=== PATIENT | male | born 2000 | race Caucasian/White ===

== ENCOUNTER 2021-03-17 14:00 | Emergency (ER) | payer OTHER, SELFPAY ==
[2021-03-17 14:11] VITALS: BP 133/86; PULSE 85; RESP 12; TEMP 36.9; O2SAT 98
--- NOTE | 2021-03-17 14:37 | ED.GENADULT ---
HPI - General Adult General Chief complaint: Abdominal Pain Stated complaint: Abdominal Pain Time Seen by Provider: 03/17/21 14:25 Source: patient, family and RN notes reviewed Mode of arrival: ambulatory Limitations: no limitations History of Present Illness HPI narrative: Alex is a 21-year-old male patient who ambulated into the [facility]. Patient states he has had right right sided abdominal pain for the last 5 days. Patient states he has not had any vomiting. Patient states he may have had a fever and he thinks he had chills on Tuesday afternoon. Patient states he has had cramping and tightness to the right abdomen. Patient denies any lifting or heavy exercise. Patient states has had a decreased appetite since Tuesday patient has been taking Pepto-Bismol and Tylenol. Patient has also been using a heating pad. Patient states the symptoms come and go. Patient states he takes Prilosec daily for acid reflux and he did not take for 3 days. MD complaint: right abdominal pain Related Data Home Medications Medication Instructions Recorded Confirmed omeprazole 03/17/21 Allergies Allergy/AdvReac Type Severity Reaction Status Date / Time amoxicillin [From Augmentin] Allergy Unknown Verified 03/17/21 14:13 clavulanic acid Allergy Unknown Verified 03/17/21 14:13 [From Augmentin] Review of Systems Review of Systems: CONSTITUTIONAL: Denies body aches, fever, chills, or sweats. EYES: Denies visual changes, redness, or discharge. ENT: Denies rhinorrhea, congestion, sore throat, or otalgia. CARDIOVASCULAR: Denies chest pain, palpitations, or edema. RESPIRATORY: Denies cough or dyspnea. GASTROINTESTINAL: +abdominal pain+ nausea, denies vomiting, or diarrhea. GENITOURINARY: Denies dysuria or hematuria. SKIN: Denies rash, itching, or wounds. MUSCULOSKELETAL: Denies back pain, joint pain, or myalgia. NEUROLOGIC: Denies headache, numbness, tingling, or weakness. PSYCH: Denies depression or anxiety. All systems reviewed & are unremarkable except as noted in HPI and below PMFSH Comments At time of signature, I have reviewed and agree with nursing past medical, surgical, social and family history unless otherwise noted. Please see nursing chart for further information. There is no relevant family history pertinent to the presenting complaint Exam Narrative: GENERAL: Well-appearing, well-nourished, and in no acute distress. HEAD: Normocephalic, atraumatic. EYES: EOMI. No redness or drainage. Conjunctivae normal. ENT: Mucous membranes pink and moist. Nares clear. No rhinorrhea. NECK: Normal AROM. Supple. No lymphadenopathy. CHEST: No respiratory distress. Clear to auscultation. HEART: Regular rate and rhythm. No murmur appreciated. Normal peripheral pulses. ABDOMEN: Soft, nontender, nondistended, normal active bowel sounds; no rebound tenderness noted to abdomen, no pain with mild or deep palpation elicited. MUSCULOSKELETAL: No bony tenderness. EXTREMITIES: Normal range of motion. No edema. SKIN: Warm, dry, no rash. Capillary refill normal. Normal skin turgor. NEURO: No focal deficits. Alert and oriented x3. Gait steady. PSYCH: Normal affect. No signs of depression or anxiety. Course Vital Signs Vital signs: Vital Signs Temperature 36.9 C 03/17/21 14:11 Pulse Rate 85 03/17/21 14:11 Respiratory Rate 12 03/17/21 14:11 Blood Pressure 133/86 03/17/21 14:11 Pulse Oximetry 98 03/17/21 14:11 Temperature 36.9 C 03/17/21 14:11 Pulse Rate 85 03/17/21 14:11 Respiratory Rate 12 03/17/21 14:11 Blood Pressure 133/86 03/17/21 14:11 Pulse Oximetry 98 03/17/21 14:11 Reviewed. Pt has been instructed to follow up with his PCP regarding his elevated blood pressure today. Medical Decision Making MDM Narrative Medical decision making narrative: Patient will be treated for gastroenteritis. Patient has no rebound tenderness. Patient has no abdominal pain with light or deep palpati
== END 2021-03-17 14:48 | disposition home or self-care (01) ==
PROVIDERS: Emergency Provider Nurse Practitioner Family
DX: K52.9 Noninfective gastroenteritis and colitis, unspecified (principal)
CPT/HCPCS: 99213; G0463

== ENCOUNTER 2021-03-24 19:41 | Emergency (ER) | payer OTHER, SELFPAY ==
--- NOTE | ~2021-03-24 | CT_ITS ---
EXAMINATION: CT abdomen pelvis w con DATE: 03/25/2021 03:12 INDICATION: Right lower quadrant abdominal pain TECHNIQUE: Computed tomography (CT) of the abdomen and pelvis was performed with 100 cc Omnipaque 350 intravenous contrast. The dose-length product was 504.37 mGy-cm. Automated exposure control and iter ative reconstruction technique were employed. COMPARISON: None. FINDINGS: Lung bases are unremarkable. No significant pleural or pericardial effusion. Heart size nor mal. There is a 2 cm right renal cyst. There are smaller low-density lesions in the right kidney, mos t likely cysts, although too small to characterize. No significant vascular abnormality. No lymphaden opathy. The liver, spleen, pancreas, adrenal glands and left kidney are unremarkable. Gallbladder is present. No acute osseous abnormality. There are mildly enlarged ileocolic lymph nodes, likely reactive. IMPRESSION: 1. Mildly enlarged ileocolic lymph nodes. Consider mesenteric adenitis in the appropriate clinical se tting. Reviewed, dictated and finalized at location B. [employer] IMPRESSION: 1. Mildly enlarged ileocolic lymph nodes. Consider mesenteric adenitis in the a ppropriate clinical setting.
[2021-03-24 19:46] VITALS: BP 126/83; PULSE 65; RESP 17; TEMP 36.4; O2SAT 99
[2021-03-24 23:09] VITALS: BP 127/76; PULSE 49; O2SAT 100
[2021-03-25 01:09] VITALS: BP 133/82; PULSE 58; RESP 16; O2SAT 100
[2021-03-25 01:53] LABS: Basophils Absolute Auto 0.1 K/mm3 (0.0-0.1); Eosinophils Absolute Auto 0.2 K/mm3 (0-0.3); Eosinophils Percent Auto 3.4 % (0-4.4); Hemoglobin 13.6 g/dL (14.0-18.0); Immature Granulocyte Absolute 0.01 K/mm3 (0.00-0.031); Immature Granulocyte Percent A 0.2 % (0-0.5); Lymphocytes Absolute Auto 2.87 K/mm3 (0.9-3.2); Lymphocytes Percent Auto 54.7 % (18.3-44.2); Mean Corpuscular HGB Conc 34.9 g/dl (32-36); Mean Corpuscular Hemoglobin 31.6 pg (26-34); Mean Corpuscular Volume 90.5 fl (80-100); Mean Platelet Volume 11.2 fl (7.4-10.4); Monocytes Absolute Auto 0.5 K/mm3 (0.1-0.6); Neutrophils Absolute Auto 1.7 K/mm3 (1.3-6.7); Neutrophils Percent Auto 31.7 % (45.5-73.1); Platelet Count Result 216 k/mm3 (150-375); Red Blood Count 4.31 M/mm3 (4.6-6.20); White Blood Count 5.3 K/mm3 (4.5-10.0)
[2021-03-25 02:04] LABS: Alanine Aminotransferase 17 U/L (4-50); Albumin Level 4.7 g/dL (3.5-5.1); Alkaline Phosphatase 63 U/L (38-126); Anion Gap 9 mmol/L (8-16); Aspartate Amino Transferase 20 U/L (17-59); Bilirubin,Total 0.6 mg/dL (0.2-1.3); Blood Urea Nitrogen 18 mg/dL (9-20); Calcium 9.6 mg/dL (8.4-10.2); Carbon Dioxide 30 mmol/L (22-30); Chloride 102 mmol/L (98-107); Estimated CRCL calculation 105 ml/min; Estimated Glomerular Filt Rate > 60; Glucose 98 mg/dL (65-110); Lipase 77 U/L (23-300); Potassium 3.7 mmol/L (3.4-5.0); Sodium 141 mmol/L (137-145)
[2021-03-25] MEDS: ONDANSETRON INJ 4 MG/2 ML VIAL IV PUSH (03:16)
[2021-03-25] MEDS: SODIUM CHLORIDE 0.9% IV 1,000 ML 999 ML IV CONT (03:16)
[2021-03-25] MEDS: DICYCLOMINE HCL INJ 20 MG/2 ML VIAL IM (03:18)
[2021-03-25 03:23] VITALS: BP 125/81; PULSE 63; RESP 18; O2SAT 100
[2021-03-25 04:30] LABS: Add Urine Microscopic? NO; Appearance Urine Clear (Clear); Bilirubin Urine Negative (Negative); Blood Urine Negative (Negative); Color Urine Straw (Yellow); Glucose Urine UA Negative (Negative); Ketones Urine Negative (Negative); Leukocyte Esterase Ur Negative LEU/UL (Negative); Mucus Urine Rare /lpf; Nitrate Urine Negative (Negative); Protein Urine Negative (Negative); RBC Urine 0-2 /hpf (0-2); Squamous Epithelial Cell Urine Rare /hpf (Few); Urobilinogen Urine Negative mg/dL (<2.0); WBC Urine 0-3 /hpf
[2021-03-25 04:33] LABS: Specific Grav Ur > 1.060 (1.001-1.035)
--- NOTE | 2021-03-25 04:43 | ED.GENADULT ---
HPI - General Adult General Chief complaint: Abdominal Pain Stated complaint: abdominal pain Time Seen by Provider: 03/25/21 02:30 History of Present Illness HPI narrative: Patient 21-year-old gentleman who presents the emergency department with chief complaint of abdominal pain. The patient states for the last 12 days has been having pain in the right lower quadrant patient states the pain started radiating to his back has been having some diarrhea with this as well. Patient is not had any problems dysuria denies vomiting with this. Related Data Home Medications Medication Instructions Recorded Confirmed omeprazole 03/17/21 Allergies Allergy/AdvReac Type Severity Reaction Status Date / Time amoxicillin [From Augmentin] Allergy Unknown Verified 03/25/21 02:21 clavulanic acid Allergy Unknown Verified 03/25/21 02:21 [From Augmentin] Review of Systems Review of Systems: A 10 system review of systems was completed on the patient and is negative except for what is stated in the HPI. Nursing and ancillary documentation was reviewed. Exam Narrative: GENERAL: Well-appearing, well-nourished, and in no acute distress. HEAD: Normocephalic, atraumatic. EYES: PERRLA and EOMI. ENT: Nares clear, no rhinorrhea or epistaxis. Mucous membranes moist. NECK: Supple. CHEST: Clear to auscultation. No respiratory distress. HEART: Regular rate and rhythm. No murmur heard. Normal peripheral pulses. ABDOMEN: Soft, tenderness to palpation the right lower quadrant, nondistended, normal active bowel sounds. EXTREMITIES: Normal range of motion. No edema. SKIN: Warm, dry, no rash. NEURO: No focal deficits. Alert and oriented x3. PSYCH: Normal mood and affect. Course Course Emergency Course: CT scan shows evidence of possible colitis also there is evidence of mesenteric adenitis Vital Signs Vital signs: Vital Signs Temperature 36.4 C 03/24/21 19:46 Pulse Rate 65 03/24/21 19:46 Respiratory Rate 17 03/24/21 19:46 Blood Pressure 126/83 03/24/21 19:46 Pulse Oximetry 99 03/24/21 19:46 Temperature 36.4 C 03/24/21 19:46 Pulse Rate 63 03/25/21 03:23 Respiratory Rate 18 03/25/21 03:23 Blood Pressure 125/81 03/25/21 03:23 Pulse Oximetry 100 03/25/21 03:23 Medical Decision Making Vital Signs Vital Signs: Vital Signs Temperature 36.4 C 03/24/21 19:46 Pulse Rate 65 03/24/21 19:46 Respiratory Rate 17 03/24/21 19:46 Blood Pressure 126/83 03/24/21 19:46 Pulse Oximetry 99 03/24/21 19:46 Temperature 36.4 C 03/24/21 19:46 Pulse Rate 63 03/25/21 03:23 Respiratory Rate 18 03/25/21 03:23 Blood Pressure 125/81 03/25/21 03:23 Pulse Oximetry 100 03/25/21 03:23 Lab Data Result diagrams: 03/25/21 01:47 03/25/21 01:47 Labs: Lab Results 03/25/21 03/25/21 03/25/21 Range/Units 01:47 01:47 04:14 WBC 5.3 (4.5-10.0) K/mm3 RBC 4.31 L (4.6-6.20) M/mm3 Hgb 13.6 L (14.0-18.0) g/dL Hct 39.0 L (42.0-52.0) % MCV 90.5 (80-100) fl MCH 31.6 (26-34) pg MCHC 34.9 (32-36) g/dl RDW 11.0 L (11.5-14.5) % Plt Count 216 (150-375) k/mm3 MPV 11.2 H (7.4-10.4) fl Immature Gran % (Auto) 0.2 (0-0.5) % Neut % (Auto) 31.7 L (45.5-73.1) % Lymph % (Auto) 54.7 H (18.3-44.2) % [place] % (Auto) 9.0 H (2.6-8.5) % Eos % (Auto) 3.4 (0-4.4) % Baso % (Auto) 1.0 (0.2-1.2) % Lymph # (Auto) 2.87 (0.9-3.2) K/mm3 [place] # (Auto) 0.5 (0.1-0.6) K/mm3 Eos # (Auto) 0.2 (0-0.3) K/mm3 Baso # (Auto) 0.1 (0.0-0.1) K/mm3 Abs Immat Gran (auto) 0.01 (0.00-0.031) K/mm3 Absolute Neuts (auto) 1.7 (1.3-6.7) K/mm3 Absolute Nucleated RBC 0.0 (0.0-0.012) K/mm3 Nucleated RBC % 0.0 (0.0-0.2) % Sodium 141 (137-145) mmol/L Potassium 3.7 (3.4-5.0) mmol/L Chloride 102 (98-107) mmol/L Carbon Dioxide 30 (22-30) mmol/L Anion Gap 9 (8-16) mmol/L BUN 18 (
[2021-03-25] MEDS: CIPROFLOXACIN 500 MG TAB PO (05:04)
[2021-03-25] MEDS: metroNIDAZOLE 250 MG TABLET 500 MG PO (05:04)
[2021-03-25 05:10] VITALS: BP 149/87; PULSE 58; RESP 16; O2SAT 100
== END 2021-03-25 05:13 | disposition home or self-care (01) ==
PROVIDERS: Emergency Provider Emergency Medicine
DX: I88.0 Nonspecific mesenteric lymphadenitis (principal); K52.9 Noninfective gastroenteritis and colitis, unspecified; R10.31 Right lower quadrant pain
CPT/HCPCS: 36415; 74177; 80053; 81003; 83690; 85025; 96361; 96372; 96374; 99284; A9270; J0500; J2405; J7030; Q9967